=== PATIENT | male | born 1995 | race African-American/Black ===

== ENCOUNTER 2022-04-13 04:14 | Emergency (ER) | payer MEDICAID ==
[~2022-04-13] VITALS: Ht 177.8 cm; Wt 140.0 kg
[2022-04-13] MEDS ORDERED: normal saline 1000ML IV soln IVB STA (04:18)
[2022-04-13] MEDS ORDERED: epiNEPHrine 1 mg/ml inj SQ ONE (04:20)
[2022-04-13] MEDS ORDERED: dexamethasone 4mg/ml inj IV ONE (04:20)
[2022-04-13] MEDS ORDERED: diphenhydrAMINE 50 mg/ml inj IV ONE (04:20)
[2022-04-13] MEDS ORDERED: famotidine/PF 10 mg/ml inj IV ONE (04:20)
[2022-04-13] MEDS ORDERED: hyDRALAzine 10mg tablet PO SCH (04:35)
[2022-04-13] MEDS ORDERED: hydrALAZINE 20mg/ml inj. IV ONE (04:35)
[2022-04-13] MEDS ORDERED: amLODIPine 5mg tablet PO ONE (04:35)
[2022-04-13 05:48] LABS: BASOPHILS # (AUTO) 0.2 X10'3 (0-0.2); BASOPHILS % (AUTO) 1.8 % (0-1); EOSINOPHILS # (AUTO) 0.3 X10'3 (0-0.9); EOSINOPHILS % (AUTO) 2.2 % (0-6); HEMATOCRIT 43.5 % (42.0-52.0); HEMOGLOBIN 14.3 g/dl (14.0-17.9); LYMPHOCYTES # (AUTO) 2.5 X10'3 (1.1-4.8); LYMPHOCYTES % (AUTO) 21.2 % (21-51); MEAN CORPUSCULAR HGB CONC 32.9 g/dL (33.0-36.5); MEAN CORPUSCULAR VOLUME 85.1 FL (78-98); MONOCYTES # (AUTO) 0.2 X10'3 (0-0.9); MONOCYTES % (AUTO) 2.1 % (2-12); NEUTROPHILS # (AUTO) 8.5 X10'3 (1.8-7.7); NEUTROPHILS % (AUTO) 72.7 % (42-75); PLATELET COUNT 193 X10'3 (140-440); RED BLOOD COUNT 5.11 X10'6 (4.70-6.10); RED CELL DISTRIBUTION WIDTH 14.7 % (11.5-14.5); WHITE BLOOD COUNT 11.7 X10'3 (4.5-11.0)
[2022-04-13 06:13] LABS: ALANINE AMINOTRANSFERASE 79 U/L (12-78); ALBUMIN 3.1 G/DL (3.4-5.0); ALBUMIN/GLOBULIN RATIO 0.9 (1.1-1.5); ALKALINE PHOSPHATASE 127 IU/L (46-116); ANION GAP 7 (8-16); ASPARTATE AMINO TRANSFERASE 56 U/L (10-37); BILIRUBIN,TOTAL 0.3 MG/DL (0.1-1.0); BLOOD UREA NITROGEN 17 MG/DL (7-18); BUN/CREATININE RATIO 13.3 (5.4-32.0); CALCIUM 8.4 MG/DL (8.5-10.1); CHLORIDE 105 MMOL/L (99-107); CREATININE 1.28 MG/DL (0.60-1.10); ETHANOL < 0.010 GM/DL (0.0-0.010); GLUCOSE 106 MG/DL (70-104); MAGNESIUM 1.8 MG/DL (1.5-2.4); POTASSIUM 3.4 MMOL/L (3.5-5.1); SODIUM 140 MMOL/L (135-145); TOTAL CARBON DIOXIDE 28.3 MMOL/L (24-32); TOTAL PROTEIN 6.6 G/DL (6.4-8.2); eGFR 67 ML/MIN
[2022-04-13] MEDS ORDERED: PRED20TA PO (07:55)
[2022-04-13] MEDS ORDERED: LORA10TA7 PO (07:55)
[2022-04-13] MEDS ORDERED: EPIN0.3P3 IM (07:55)
[2022-04-13 08:38] VITALS: BP 169/120
== END 2022-04-13 08:41 | disposition home or self-care (01) ==
LOC: ER 04:15
DX: T78.2XXA Anaphylactic shock, unspecified, initial encounter (principal); F15.10 Other stimulant abuse, uncomplicated; I10 Essential (primary) hypertension; Z91.013 Allergy to seafood; F17.200 Nicotine dependence, unspecified, uncomplicated; F12.10 Cannabis abuse, uncomplicated
CPT/HCPCS: 36415; 80053; 80320; 83735; 85025; 96361; 96374; 96375; 96376; 99291; J0171; J0360; J1100; J1200; J3490; J7030

== ENCOUNTER 2022-08-11 17:29 | Emergency (ER) | payer MEDICAID ==
[~2022-08-11] VITALS: Ht 167.6 cm; Wt 136.3 kg
[~2022-08-11 17:29] MED LIST: EPIN0.3P3 IM; LORA10TA7 PO
[2022-08-11 17:49] LABS: BASOPHILS # (AUTO) 0.1 X10'3 (0-0.2); BASOPHILS % (AUTO) 1.3 % (0-1); EOSINOPHILS # (AUTO) 0.2 X10'3 (0-0.9); EOSINOPHILS % (AUTO) 1.7 % (0-6); LYMPHOCYTES # (AUTO) 2.8 X10'3 (1.1-4.8); LYMPHOCYTES % (AUTO) 28.6 % (21-51); MEAN CORPUSCULAR HEMOGLOBIN 27.5 PG (27.0-31.0); MEAN CORPUSCULAR HGB CONC 32.5 g/dL (33.0-36.5); MEAN CORPUSCULAR VOLUME 84.7 FL (78-98); MEAN PLATELET VOLUME 8.5 FL (7.4-10.4); MONOCYTES # (AUTO) 0.7 X10'3 (0-0.9); MONOCYTES % (AUTO) 7.1 % (2-12); NEUTROPHILS # (AUTO) 5.9 X10'3 (1.8-7.7); NEUTROPHILS % (AUTO) 61.3 % (42-75); PLATELET COUNT 162 X10'3 (140-440); RED BLOOD COUNT 4.72 X10'6 (4.70-6.10); RED CELL DISTRIBUTION WIDTH 15.1 % (11.5-14.5); WHITE BLOOD COUNT 9.6 X10'3 (4.5-11.0)
[2022-08-11 18:07] LABS: ALANINE AMINOTRANSFERASE 97 U/L (12-78); ALBUMIN/GLOBULIN RATIO 0.8 (1.1-1.5); ALKALINE PHOSPHATASE 140 IU/L (46-116); ANION GAP 5 (8-16); ASPARTATE AMINO TRANSFERASE 83 U/L (10-37); BILIRUBIN,TOTAL 0.5 MG/DL (0.1-1.0); BLOOD UREA NITROGEN 25 MG/DL (7-18); BUN/CREATININE RATIO 15.2 (5.4-32.0); CALCIUM 8.7 MG/DL (8.5-10.1); CHLORIDE 103 MMOL/L (99-107); CREATININE 1.64 MG/DL (0.60-1.10); GLUCOSE 115 MG/DL (70-104); POTASSIUM 3.8 MMOL/L (3.5-5.1); SODIUM 136 MMOL/L (135-145); TOTAL CARBON DIOXIDE 28.3 MMOL/L (24-32); TOTAL PROTEIN 6.9 G/DL (6.4-8.2); eGFR 61 ML/MIN
[2022-08-11] MEDS ORDERED: amLODIPine 5mg tablet PO ONE (18:30)
[2022-08-11] MEDS ORDERED: AMLO5TAB4 PO (20:41)
[2022-08-11 21:24] VITALS: BP 192/98
== END 2022-08-11 21:28 | disposition home or self-care (01) ==
LOC: ER 17:30
DX: R07.9 Chest pain, unspecified (principal); F15.10 Other stimulant abuse, uncomplicated; F12.10 Cannabis abuse, uncomplicated; F17.200 Nicotine dependence, unspecified, uncomplicated; I10 Essential (primary) hypertension; Z91.013 Allergy to seafood
CPT/HCPCS: 36415; 71045; 80053; 83735; 83880; 84484; 85025; 93005; 99285

== ENCOUNTER 2022-09-06 10:29 | Emergency (ER) | payer MEDICAID ==
[~2022-09-06] VITALS: Ht 170.2 cm; Wt 136.4 kg
[~2022-09-06 10:29] MED LIST changes: +AMLO5TAB4 PO
[2022-09-06 10:35] VITALS: BP 214/152
[2022-09-06] MEDS ORDERED: dexamethasone sod phosphate 10mg/ml inj IM STA (11:04)
[2022-09-06] MEDS ORDERED: amox tr/potassium clavulanate 875/125mg TAB PO ONE (11:05)
[2022-09-06] MEDS ORDERED: LIDOcaine Viscous 15ml cup MM PRN (11:05)
[2022-09-06] MEDS ORDERED: DEC4T PO (12:26)
[2022-09-06] MEDS ORDERED: AMOX-580 PO (12:26)
== END 2022-09-06 12:49 | disposition home or self-care (01) ==
LOC: ER 10:30
DX: J02.9 Acute pharyngitis, unspecified (principal); I10 Essential (primary) hypertension; F12.10 Cannabis abuse, uncomplicated; F15.10 Other stimulant abuse, uncomplicated; Z91.013 Allergy to seafood; Z79.899 Other long term (current) drug therapy
CPT/HCPCS: 87081; 87880; 96372; 99283; J1100

== ENCOUNTER 2025-05-30 00:04 | Emergency (ER) | payer MEDICAID ==
[~2025-05-30] VITALS: Ht 175.3 cm; Wt 104.5 kg
--- NOTE | 2025-05-30 00:16 | Physician Documentation ---
History of Present Illness ~ General Stated Complaint: SOB Time Seen by MD: 00:07 Primary Medical Doctor: N/A History of Present Illness Initial Comments Patient presents to the emergency room for concerns of shortness of breath. Patient is a dialysis patient and normally gets dialysis Tuesdays and Saturdays. Reports that he would not get dialysis on Friday because he is feeling ill. Endorses methamphetamine use. Patient is from [place] and is traveling through the area and is trying to work with [employer] to get dialysis. Medication Reconciliation Allergies: Coded Allergies: shrimp (Verified Allergy, Severe, 04/13/22) shellfish derived (Unverified Allergy, Unknown, 09/06/22) Scheduled Hydralazine HCl (Hydralazine HCl), 25 MG PO Q8H, (Reported) Nifedipine (Nifedipine Er), 1 TAB PO DAILY, (Reported) Discontinued Medications Amlodipine Besylate (Norvasc), 1 TAB PO DAILY Discontinued Reason: patient no longer taking Epinephrine (Epipen 2-You), 1 SYR IM ONCE PRN for allergies Discontinued Reason: patient no longer taking Loratadine (Loratadine), 1 TAB PO DAILY Discontinued Reason: patient no longer taking Past Medical History Past Medical History: Hypertension Past Surgical History: no surgical history Alcohol Use: Occasionally Drug Use: marijuana, methamphetamine Lives with: Family Lives In: Home Occupation: unemployed Review of Systems ROS All review of systems negative except as per HPI Physical Exam Physical Exam Physical Exam General: Patient is awake, alert, oriented x4 in no acute distress Head: Normocephalic and atraumatic. Eyes: Conjunctival normal. EOMI. PERRL. ENT: Mucous membranes moist. Neck: Supple, trachea is midline. Chest: Clear to auscultation bilaterally without rales, rhonchi, or wheezes. There is no accessory muscle use or retractions. Cardiac: RRR without murmurs, gallops, or rubs. Abd: Soft, nondistended, nontender, with normoactive bowel sounds. No guarding, rebound, or rigidity. Extremities: Normal strength. Normal range of motion. No deformities or edema. Progress Results/Orders Results/Orders Orders - GILBERTO CRUZ MD Urinalysis, Cult If Indicated (05/30/25 00:10) Chest,Single View (05/30/25 00:10) Drug Screen, Urine (05/30/25 00:10) Completed Orders - GILBERTO CRUZ MD Cbc/Diff (05/30/25 00:10) Chest,Single View (05/30/25 00:10) Ethanol (05/30/25 00:10) CMP (05/30/25 00:10) PBNP (05/30/25 00:10) Hs Troponin I W Calculations (05/30/25 00:10) Vital Signs 05/30/25 05/30/25 00:12 00:30 Temp 98.6 Pulse 98 Resp 20 22 B/P (MAP) 202/137 Pulse Ox 98 Laboratory Tests Test 05/30/25 00:20 05/30/25 00:48 White Blood Count 8.4 Red Blood Count 3.82 L Hemoglobin 11.6 L Hematocrit 34.1 L Mean Corpuscular Volume 89.3 Mean Corpuscular Hemoglobin 30.4 Mean Corpuscular Hemoglobin Concent 34.0 Red Cell Distribution Width 14.1 Platelet Count 180 Mean Platelet Volume 8.0 Neutrophils (%) (Auto) 58.6 Lymphocytes (%) (Auto) 26.7 Monocytes (%) (Auto) 8.6 Eosinophils (%) (Auto) 5.0 Basophils (%) (Auto) 1.1 H Neutrophils # (Auto) 4.9 Lymphocytes # (Auto) 2.2 Monocytes # (Auto) 0.7 Eosinophils # (Auto) 0.4 Basophils # (Auto) 0.1 CBC Comment Sodium Level 140 Potassium Level 4.0 Chloride Level 101 Carbon Dioxide Level 26.9 Anion Gap 12 Blood Urea Nitrogen 85 H Creatinine 10.44 H Estimated GFR/1.73 m2 7 BUN/Creatinine Ratio 8.1 L Glucose Level 111 H Calcium Level 8.4 L Total Bilirubin 0.3 Aspartate Amino Transf (AST/SGOT) 38 H Alanine Aminotransferase (ALT/SGPT) 61 Alkaline Phosphatase 224 H Troponin I High Sensitivity 181 *H Pro-B-Type Natriuretic Peptide 4136 H Total Protein 7.2 Albumin 3.4 Globulin 3.8 Albumin/Globulin Ratio 0.9 L Chemistry Comments Ethyl Alcohol Level < 10 EKG/XRAY/CT/US/VASC/MRI EKG : Additional Comment EKG interpreted by myself shows time of 0005, rate 100, sinus tachycardia, norm al axis, nonspecific ST-T changes Medical Decision Making Additional information obtaine: old records Findings Patient presents to the emergency room with report of shortness of breaths related to dialysis. Differentials include but are not limited to fluid overload, hyperkalemia, end-stage renal disease, electrolyte disturbances therefore emergent labs ordered. Labs reassuring for no significant elevation of potassium. Patient is not volume overloaded clinically. Mild elevation of troponins however no chest pain reported he had not feel this is a function of acute coronary syndrome but rather a function of end-stage renal disease. Patient has been trying to get in contact with [facility] to arrange for dialysis however has been unsuccessful. I have instructed the patient to call [facility] in the morning to arrange for dialysis and to return if there are any problems. Patient does not require emergent dialysis at this time. Differential Diagnosis g Departure Disposition: 01 HOME / SELF CARE / HOMELESS Impression: Primary Impression: End stage renal disease Condition: Stable Discharge Instructions: Dialysis Additional Instructions: Call [facility] tomorrow to arrange for dialysis Referrals: NO PRIMARY CARE PROVIDER (PCP) Signature Scribe Signature: No scribe Attestation: The note accurately reflects work and decisions made by me.Gilberto Cruz MD 05/30/25 01:05 GILBERTO CRUZ MD May 30, 2025 00:16
[2025-05-30 00:30] LABS: MEAN PLATELET VOLUME 8.0 FL (7.4-10.4); RED CELL DISTRIBUTION WIDTH 14.1 % (11.5-14.5)
[2025-05-30 00:46] LABS: CREATININE 10.44 MG/DL (0.60-1.10); TOTAL CARBON DIOXIDE 26.9 MMOL/L (24-32); eCRCL 10 ML/MIN; eGFR 7 ML/MIN
[2025-05-30 00:52] LABS: ETHANOL < 10 MG/DL (<10); PRO BRAIN NATRIURETIC PEPTIDE 4136 PG/ML (0-125)
[2025-05-30] MEDS ORDERED: HYDR50TA46 PO (00:52)
[2025-05-30] MEDS ORDERED: NIFE-128 PO ×2 (00:53→01:10)
--- NOTE | 2025-05-30 00:54 | RADIOLOGY REPORT ---
CHEST RADIOGRAPH Indication: aloc Technique: Single frontal view of the chest was obtained COMPARISON: None FINDINGS: Lines and Tubes: Right PermCath tip projects at the level of the proximal superior vena cava. Lungs: Clear Pleura: No effusion. No pneumothorax. Cardiomediastinal contours: Cardiomegaly. Bones: Unremarkable IMPRESSION: 1. Cardiomegaly. 2. Right PermCath.
[2025-05-30 01:09] LABS: LEUKOCYTE ESTERASE ,URINE NEGATIVE (Neg); NITRITES, URINE NEGATIVE (Neg); OCCULT BLOOD,URINE MODERATE (Neg)
[2025-05-30] MEDS ORDERED: HYDR25TA90 PO (01:10)
[2025-05-30 01:15] LABS: UA COLLECTION TYPE CLN CATCH MIDSTREAM
[2025-05-30 01:17] LABS: SQUAMOUS EPITHELIAL CELL,UR FEW /LPF (FEW)
[2025-05-30 01:19] LABS: URINE AMPHETAMINE SCREEN POSITIVE (Neg); URINE BARBITUATE SCREEN NEGATIVE (Neg); URINE BENZODIAZEPINES SCREEN NEGATIVE (Neg); URINE CANNABINOID SCREEN NEGATIVE (Neg); URINE COCAINE SCREEN NEGATIVE (Neg); URINE METHADONE SCREEN NEGATIVE (Neg); URINE OPIATE SCREEN NEGATIVE (Neg); URINE PHENCYCLIDINE SCREEN NEGATIVE (Neg)
[2025-05-30] MEDS: NIFEdipine XL 30mg tablet PO ONE (01:22)
[2025-05-30 01:23] VITALS: PULSE 103
[2025-05-30 01:48] VITALS: BP 204/132; RESP 15; TEMP 98.6; O2SAT 99
--- NOTE | 2025-05-30 09:07 | ELECTROCARDIOGRAPH REPORT ---
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 Jey Butler Measurements Intervals [place] Rate: 100 P: 50 RI: 178 QRS: 31 QRSD: 100 T: 131 QT: 367 QTc: 474 Interpretive Statements Sinus tachycardia Left atrial enlargement Probable anteroseptal infarct, acute Lateral leads are also involved Electronically Signed On 05-30-2025 9:40:[address] Jey Butler Please click the below link to view image of tracing.
== END 2025-05-30 02:02 | disposition home or self-care (01) ==
LOC: ER 00:04
DX: I13.11 Hypertensive heart and chronic kidney disease without heart failure, with stage 5 chronic kidney disease, or end stage renal disease (principal); N18.6 End stage renal disease; F15.90 Other stimulant use, unspecified, uncomplicated; Z91.013 Allergy to seafood; Z79.899 Other long term (current) drug therapy; Z72.89 Other problems related to lifestyle; Z56.0 Unemployment, unspecified; F12.90 Cannabis use, unspecified, uncomplicated
CPT/HCPCS: 36415; 71045; 80053; 80305; 80320; 81001; 83880; 84484; 85025; 93005; 99285

== ENCOUNTER 2025-06-06 05:19 | Emergency (ER) | payer MEDICAID ==
[~2025-06-06] VITALS: Ht 167.6 cm; Wt 104.5 kg
[~2025-06-06 05:19] MED LIST changes: -AMLO5TAB4 PO; -EPIN0.3P3 IM; +HYDR25TA90 PO; +HYDR50TA46 PO; -LORA10TA7 PO; +NIFE-128 PO
--- NOTE | 2025-06-06 05:31 | ELECTROCARDIOGRAPH REPORT ---
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 Shelley Banks Measurements Intervals [place] Rate: 89 P: 48 NE: 184 QRS: -9 QRSD: 102 T: 86 QT: 389 QTc: 474 Interpretive Statements Sinus rhythm Left atrial enlargement Abnormal T, consider ischemia, lateral leads ST elev, probable normal early repol pattern Baseline wander in lead(s) V1 Electronically Signed On 06-06-2025 6:18:[address] Shelley Banks Please click the below link to view image of tracing.
--- NOTE | 2025-06-06 06:21 | RADIOLOGY REPORT ---
CHEST RADIOGRAPH Indication: CP Technique: Single frontal view of the chest was obtained Comparison: DI CHEST SINGLE VIEW on DOS: 05/30/25 FINDINGS: Lines and Tubes: There is a right central venous catheter with its tip terminating in the superior vena cava. Lungs: No focal consolidation. Pleura: No effusion. No pneumothorax. Cardiomediastinal contours: Unremarkable Bones: No acute osseous abnormality. IMPRESSION: 1. No acute cardiopulmonary disease.
[2025-06-06 06:46] LABS: MEAN PLATELET VOLUME 8.7 FL (7.4-10.4); RED CELL DISTRIBUTION WIDTH 14.0 % (11.5-14.5)
[2025-06-06 07:15] LABS: CREATININE 8.39 MG/DL (0.60-1.10); PRO BRAIN NATRIURETIC PEPTIDE 7880 PG/ML (0-125); TOTAL CARBON DIOXIDE 26.5 MMOL/L (24-32); eCRCL 12 ML/MIN; eGFR 9 ML/MIN
--- NOTE | 2025-06-06 07:29 | Physician Documentation ---
History of Present Illness General Chief Complaint: Chest Pain Stated Complaint: CHEST DISCOMFORT Time Seen by MD: 07:16 Primary Medical Doctor: N/A Mode of Arrival: POV, Ambulatory History of Present Illness Initial Comments 29-year-old male with a history of end-stage renal disease who gets dialysis last dialysis was on Friday, presents with left-sided chest discomfort. The patient states he has had left-sided chest pressure over last 8 hours. The patient states he has also had a week's worth of increasing shortness of breath and orthopnea. The patient denies any fevers or chills. He states the pain has improved slightly. He states that he has no cough or significant worsening of his breathing at this time. The patient denies any significant cardiac history. The patient states he has high blood pressure and has been taking his blood pr essure medication. Patient's symptoms are moderate and persistent. The patient denies any nausea or vomiting Medication Reconciliation Allergies: Coded Allergies: shrimp (Verified Allergy, Severe, 04/13/22) shellfish derived (Unverified Allergy, Unknown, 09/06/22) Scheduled Hydralazine HCl (Hydralazine HCl), 25 MG PO Q8H, (Reported) Hydralazine Hcl* (Apresoline*), 25 MG PO Q8H Nifedipine (Nifedipine Er), 1 TAB PO DAILY, (Reported) Nifedipine (Nifedipine Er), 1 TAB PO DAILY Past Medical History Past Medical History: Hypertension, Dialysis Past Surgical History: no surgical history Alcohol Use: Occasionally Drug Use: marijuana, methamphetamine Lives with: Family Lives In: Home Occupation: unemployed Review of Systems All Other Systems at this time: Reviewed and Negative Physical Exam Physical Exam Vital Signs: Temperature: 98.2, Source: Oral, Heart Rate: 82, Respiratory Rate: 16, BP: 208/156, Pulse Oximetry: 96, Weight: 104.550 Oxygen Flow Rate: 0 Physical Exam VITALS: Reviewed and as above. GENERAL: Alert, no apparent distress. HEENT: Normocephalic, atraumatic, PERRL, EOMI, dry mucosa, no erythema RESPIRATORY: Lungs clear, normal breath sounds, no respiratory distress. CHEST: No accessory muscle use, no retractions CV: Regular rate, rhythm, no edema, no murmur, No: JVD GI: Soft, non-tender, bowels sounds present, no rebound, guarding, or rigidity BACK: No CVA tenderness, or swelling MUSCULOSKELETAL: No deformities, no edema SKIN: Warm and dry, no rash NEURO: Oriented x4, No motor or sensory deficit PSYCH: Normal mood and affect, no agitation Progress Results/Orders Results/Orders Completed Orders - OHBENEDICTO MONROY MD Hydralazine Tablet (Apresoline Tablet) (06/06/25 07:25) Acetaminophen 1,000mg/100ml Iv (Ofirmev (06/06/25 07:45) Vital Signs 06/06/25 06/06/25 06/06/25 06/06/25 05:27 05:34 05:37 07:20 Temp 98.2 Pulse 85 82 82 Resp 16 16 16 16 B/P (MAP) 183/131 183/131 (148) 208/156 (173) Pulse Ox 94 96 O2 Flow Rate 0 0 06/06/25 06/06/25 07:47 08:39 Temp 98.6 Pulse 89 94 Resp 22 B/P (MAP) 206/120 Pulse Ox 98 Laboratory Tests Test 06/06/25 06:22 06/06/25 08:10 White Blood Count 9.2 Red Blood Count 3.95 L Hemoglobin 11.9 L Hematocrit 35.4 L Mean Corpuscular Volume 89.6 Mean Corpuscular Hemoglobin 30.1 Mean Corpuscular Hemoglobin Concent 33.6 Red Cell Distribution Width 14.0 Platelet Count 169 Mean Platelet Volume 8.7 Neutrophils (%) (Auto) 70.4 Lymphocytes (%) (Auto) 19.7 L Monocytes (%) (Auto) 7.4 Eosinophils (%) (Auto) 1.6 Basophils (%) (Auto) 0.9 Neutrophils # (Auto) 6.5 Lymphocytes # (Auto) 1.8 Monocytes # (Auto) 0.7 Eosinophils # (Auto) 0.2 Basophils # (Auto) 0.1 CBC Comment Sodium Level 138 Potassium Level 3.9 Chloride Level 100 Carbon Dioxide Level 26.5 Anion Gap 12 Blood Urea Nitrogen 84 H Creatinine 8.39 H Estimated GFR/1.73 m2 9 BUN/Creatinine Ratio 10.0 Glucose Level 100 Calcium Level 8.6 Troponin I High Sensitivity 184 *H 193 *H Pro-B-Type Natriuretic Peptide 7880 H Albumin 3.5 Chemistry Comments Troponin I High Sens Percent Delta 4 Troponin I Hi Sens Absolute Change 9 Medical Decision Making Additional information obtaine: old records Findings The patient is 12 lead EKG demonstrates a slight rightward axis a sinus rhythm rate of 89 patient has evidence of LVH with some strain and left atrial enlargement is impression is an abnormal EKG with a rate of 89 time of interpretation was 0 800. The patient's chest x-ray was interpreted by me as showing a vascular catheter in the right neck, the patient's lung finney showed very slight pulmonary congestion, the patient has a normal-appearing cardiac silhouette and normal-appearing bony structures impression was slight pulmonary vascular congestion right greater than left the radiologist's interpretation was reviewed as well. 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 The patient has some nonspecific left-sided pain that has a improved he is troponin is elevated has been chronically elevated in the past serial troponins did not demonstrate any significant elevation, the patient is desiring discharge he was hypertensive he was given or dose of hydralazine here it was discussed with Nephrology, Dr Andujar, he will be discharged with instructions to return for worsening of his symptoms and to a follow up for dialysis tomorrow Differential Diagnosis Musculoskeletal chest pain, pleurisy, pericarditis, myocardial ischemia Departure Time of Disposition: 08:37 Disposition: 01 HOME / SELF CARE / HOMELESS Impression: Primary Impression: Chest pain Qualified Codes: R07.9 - Chest pain, unspecified Discharge Instructions: Nonspecific Chest Pain, Adult Additional Instructions: Return for worsening of your pain, return for worsening of your breathing, fo llow up for dialysis tomorrow. Referrals: NO PRIMARY CARE PROVIDER (PCP) Signature Scribe Signature: No scribe Attestation: The note accurately reflects work and decisions made by me.Bneedicto Mckinley MD 06/07/25 06:37 BENEDICTO MCKINLEY MD Jun 06, 2025 07:29
[2025-06-06] MEDS: acetaminophen 1,000mg/100ml IV 100 ML IV ONE (07:51)
[2025-06-06 08:39] VITALS: BP 206/120; PULSE 94; RESP 22; TEMP 98.6; O2SAT 98
== END 2025-06-06 08:41 | disposition home or self-care (01) ==
LOC: ER 05:20
DX: R07.89 Other chest pain (principal); F12.90 Cannabis use, unspecified, uncomplicated; F15.90 Other stimulant use, unspecified, uncomplicated; I13.11 Hypertensive heart and chronic kidney disease without heart failure, with stage 5 chronic kidney disease, or end stage renal disease; N18.6 End stage renal disease; Z91.013 Allergy to seafood; Z79.899 Other long term (current) drug therapy; Z56.0 Unemployment, unspecified; Z72.89 Other problems related to lifestyle; Z99.2 Dependence on renal dialysis
CPT/HCPCS: 36415; 71045; 80048; 83880; 84484; 85025; 93005; 96374; 99285; J0131